=== PATIENT | male | born 1945 | race Two or more races ===

== ENCOUNTER 2017-02-28 13:58 | Emergency (ER) | payer MEDICARE, MEDICAID ==
[~2017-02-28] VITALS: Ht 170.2 cm; Wt 72.7 kg
[~2017-02-28 13:58] MED LIST: ASPI-1264 PO; BISM262T15 PO; CIPR-259 PO
[2017-02-28] MEDS ORDERED: normal saline 1000ML IV soln IVB ONE (14:40)
[2017-02-28] MEDS ORDERED: HYDROmorphone inj. 0.5 MG/0.5 ML DISP.SYRIN IV ONE (14:40)
[2017-02-28 14:52] LABS: CLARITY,URINE Clear (Clear); COLOR,URINE Dark Yellow (Yellow); GLUCOSE, URINE Negative (Neg); KETONES,URINE Negative (Neg); LEUKOCYTE ESTERASE ,URINE Small (Neg); NITRITES, URINE Negative (Neg); OCCULT BLOOD,URINE Negative (Neg); PROTEIN,URINE Negative (Neg)
[2017-02-28 14:54] LABS: UA COLLECTION TYPE CLN CATCH MIDSTREAM
[2017-02-28 15:00] LABS: BASOPHILS % (AUTO) 0.3 % (0-1); EOSINOPHILS # (AUTO) 0.3 X10'3 (0-0.9); EOSINOPHILS % (AUTO) 3.7 % (0-6); HEMATOCRIT 39.6 % (42.0-52.0); HEMOGLOBIN 13.4 g/dl (14.0-17.9); LYMPHOCYTES % (AUTO) 23.3 % (21-51); MEAN CORPUSCULAR HEMOGLOBIN 30.2 PG (27.0-31.0); MEAN CORPUSCULAR HGB CONC 33.7 % (33.0-36.5); MEAN CORPUSCULAR VOLUME 89.5 FL (78-98); MEAN PLATELET VOLUME 9.3 FL (7.4-10.4); MONOCYTES # (AUTO) 0.6 X10'3 (0-0.9); MONOCYTES % (AUTO) 6.9 % (2-12); NEUTROPHILS # (AUTO) 5.6 X10'3 (1.8-7.7); NEUTROPHILS % (AUTO) 65.8 % (42-75); PLATELET COUNT 261 X10'3 (140-440); RED BLOOD COUNT 4.43 X10'6 (4.70-6.10); RED CELL DISTRIBUTION WIDTH 13.9 % (11.5-14.5); WHITE BLOOD COUNT 8.6 X10'3 (4.5-11.0)
[2017-02-28 15:05] LABS: BACTERIA,URINE FEW /HPF (Neg); MUCUS STRANDS MANY /LPF (Neg); RBC,URINE NONE SEEN /HPF (0-2); SQUAMOUS EPITHELIAL CELL,UR FEW /LPF (FEW); WBC,URINE 0-4 /HPF (0-4)
[2017-02-28 15:08] LABS: PROTHROMBIN TIME 10.4 SECONDS (9.0-12.0)
[2017-02-28 15:13] LABS: ALANINE AMINOTRANSFERASE 54 U/L (12-78); ALBUMIN 3.7 G/DL (3.4-5.0); ALBUMIN/GLOBULIN RATIO 0.9 (1.1-1.5); ALKALINE PHOSPHATASE 91 IU/L (46-116); ANION GAP 7 (8-16); ASPARTATE AMINO TRANSFERASE 31 U/L (10-37); BILIRUBIN,TOTAL 0.3 MG/DL (0.1-1.0); BLOOD UREA NITROGEN 23 MG/DL (7-18); CALCIUM 8.8 MG/DL (8.5-10.1); CHLORIDE 107 MMOL/L (99-107); GLUCOSE 99 MG/DL (70-104); POTASSIUM 3.7 MMOL/L (3.5-5.1); SODIUM 141 MMOL/L (135-145); TOTAL CARBON DIOXIDE 26.7 MMOL/L (24-32); TOTAL PROTEIN 7.7 G/DL (6.4-8.2); eGFR 74 ML/MIN
[2017-02-28] MEDS ORDERED: METR250T PO (15:20)
[2017-02-28] MEDS ORDERED: CIPR-230 PO (15:20)
[2017-02-28] MEDS ORDERED: methylPREDNISolone sod succ 125mg/2ml vial IV ONE (15:20)
[2017-02-28] MEDS ORDERED: HYDR-569 PO (15:20)
[2017-02-28] MEDS ORDERED: ONDA4TAB9 PO (15:20)
[2017-02-28 15:49] VITALS: BP 134/72
== END 2017-02-28 15:52 | disposition home or self-care (01) ==
LOC: ER 14:00
DX: K57.92 Diverticulitis of intestine, part unspecified, without perforation or abscess without bleeding (principal); Z88.1 Allergy status to other antibiotic agents; Z88.6 Allergy status to analgesic agent; Z88.8 Allergy status to other drugs, medicaments and biological substances; Z79.899 Other long term (current) drug therapy
CPT/HCPCS: 36415; 80053; 81001; 85025; 85610; 87088; 96374; 99284; J1170; J7030; 96361

== ENCOUNTER 2017-08-25 10:51 | Emergency (ER) | payer MEDICARE, MEDICAID ==
[~2017-08-25] VITALS: Ht 170.2 cm; Wt 68.3 kg
[~2017-08-25 10:51] MED LIST changes: +HYDR-569 PO
[2017-08-25 11:37] LABS: CLARITY,URINE CLEAR (Clear); COLOR,URINE YELLOW (Yellow); GLUCOSE, URINE NEGATIVE (Neg); KETONES,URINE NEGATIVE (Neg); LEUKOCYTE ESTERASE ,URINE NEGATIVE (Neg); NITRITES, URINE NEGATIVE (Neg); OCCULT BLOOD,URINE TRACE-INTACT (Neg); PROTEIN,URINE NEGATIVE (Neg); UROBILINOGEN,URINE 0.2 E.U/dL (0.2-1.0)
[2017-08-25 11:40] LABS: BASOPHILS % (AUTO) 0.2 % (0-1); EOSINOPHILS # (AUTO) 0.2 X10'3 (0-0.9); EOSINOPHILS % (AUTO) 1.4 % (0-6); HEMOGLOBIN 13.5 g/dl (14.0-17.9); LYMPHOCYTES # (AUTO) 2.4 X10'3 (1.1-4.8); LYMPHOCYTES % (AUTO) 20.6 % (21-51); MEAN CORPUSCULAR HEMOGLOBIN 30.1 PG (27.0-31.0); MEAN CORPUSCULAR HGB CONC 33.7 % (33.0-36.5); MEAN CORPUSCULAR VOLUME 89.3 FL (78-98); MEAN PLATELET VOLUME 9.4 FL (7.4-10.4); MONOCYTES # (AUTO) 0.8 X10'3 (0-0.9); MONOCYTES % (AUTO) 6.5 % (2-12); NEUTROPHILS # (AUTO) 8.4 X10'3 (1.8-7.7); NEUTROPHILS % (AUTO) 71.3 % (42-75); PLATELET COUNT 259 X10'3 (140-440); RED BLOOD COUNT 4.48 X10'6 (4.70-6.10); RED CELL DISTRIBUTION WIDTH 14.2 % (11.5-14.5); WHITE BLOOD COUNT 11.8 X10'3 (4.5-11.0)
[2017-08-25 11:45] LABS: UA COLLECTION TYPE CLN CATCH MIDSTREAM
[2017-08-25 11:46] LABS: BACTERIA,URINE NONE SEEN /HPF (Neg); MUCUS STRANDS NONE SEEN /LPF (Neg); RBC,URINE 0-2 /HPF (0-2); SQUAMOUS EPITHELIAL CELL,UR NONE SEEN /LPF (FEW); WBC,URINE NONE SEEN /HPF (0-4)
[2017-08-25 11:47] LABS: PROTHROMBIN TIME 10.4 SECONDS (9.0-12.0)
[2017-08-25 11:58] LABS: ALANINE AMINOTRANSFERASE 23 U/L (12-78); ALBUMIN 3.7 G/DL (3.4-5.0); ALBUMIN/GLOBULIN RATIO 0.9 (1.1-1.5); ALKALINE PHOSPHATASE 91 IU/L (46-116); ANION GAP 10 (8-16); ASPARTATE AMINO TRANSFERASE 14 U/L (10-37); BILIRUBIN,TOTAL 0.4 MG/DL (0.1-1.0); BLOOD UREA NITROGEN 33 MG/DL (7-18); BUN/CREATININE RATIO 30.6 (5.4-32.0); CALCIUM 8.8 MG/DL (8.5-10.1); CHLORIDE 107 MMOL/L (99-107); CREATININE 1.08 MG/DL (0.60-1.10); GLUCOSE 133 MG/DL (70-104); LIPASE 116 U/L (73-393); POTASSIUM 3.6 MMOL/L (3.5-5.1); SODIUM 142 MMOL/L (135-145); TOTAL CARBON DIOXIDE 24.6 MMOL/L (24-32); TOTAL PROTEIN 7.8 G/DL (6.4-8.2); eGFR 68 ML/MIN
[2017-08-25] MEDS ORDERED: ciprofloxacin 250mg tablet PO ONE (14:10)
[2017-08-25] MEDS ORDERED: metroNIDAZOLE 500mg tablet PO ONE (14:10)
[2017-08-25] MEDS ORDERED: CIPR-230 PO (14:18)
[2017-08-25] MEDS ORDERED: METR500T4 PO (14:18)
[2017-08-25] MEDS ORDERED: HYDROcodone/acetaminophen 10/325mg tab PO ONE (14:20)
[2017-08-25] MEDS ORDERED: HYDR-565 PO (14:21)
[2017-08-25 14:37] VITALS: BP 106/69
== END 2017-08-25 14:39 | disposition home or self-care (01) ==
LOC: ER 10:53
DX: K57.92 Diverticulitis of intestine, part unspecified, without perforation or abscess without bleeding (principal); Z79.82 Long term (current) use of aspirin; Z79.899 Other long term (current) drug therapy
CPT/HCPCS: 36415; 74176; 80053; 81001; 83690; 85025; 85610; 99285; J3490

== ENCOUNTER 2018-05-11 09:29 | Outpatient (CLI) | payer MEDICARE, MEDICAID ==
[~2018-05-11] VITALS: Ht 170.2 cm; Wt 70.3 kg
[~2018-05-11 09:29] MED LIST changes: +HYDR-4383 PO; -HYDR-569 PO
[2018-05-11] MEDS ORDERED: EYE (10:42)
[2018-05-11 11:22] LABS: CLARITY,URINE CLEAR (Clear); COLOR,URINE YELLOW (Yellow); GLUCOSE, URINE NEGATIVE (Neg); KETONES,URINE NEGATIVE (Neg); LEUKOCYTE ESTERASE ,URINE NEGATIVE (Neg); NITRITES, URINE NEGATIVE (Neg); OCCULT BLOOD,URINE NEGATIVE (Neg); PROTEIN,URINE NEGATIVE (Neg); UA COLLECTION TYPE CLN CATCH MIDSTREAM; UROBILINOGEN,URINE 0.2 E.U/dL (0.2-1.0)
[2018-05-11 11:24] LABS: BASOPHILS # (AUTO) 0.1 X10'3 (0-0.2); EOSINOPHILS # (AUTO) 0.2 X10'3 (0-0.9); EOSINOPHILS % (AUTO) 3.2 % (0-6); LYMPHOCYTES # (AUTO) 2.3 X10'3 (1.1-4.8); LYMPHOCYTES % (AUTO) 39.1 % (21-51); MEAN CORPUSCULAR HEMOGLOBIN 29.7 PG (27.0-31.0); MEAN CORPUSCULAR HGB CONC 32.9 g/dL (33.0-36.5); MEAN CORPUSCULAR VOLUME 90.2 FL (78-98); MEAN PLATELET VOLUME 9.3 FL (7.4-10.4); MONOCYTES # (AUTO) 0.4 X10'3 (0-0.9); MONOCYTES % (AUTO) 7.6 % (2-12); NEUTROPHILS # (AUTO) 2.9 X10'3 (1.8-7.7); NEUTROPHILS % (AUTO) 49.1 % (42-75); PRE OP HEMATOCRIT 43.4 % (42.0-52.0); PRE OP HEMOGLOBIN 14.3 g/dL (14.0-17.9); PRE OP PLATELET COUNT 274 X10'3 (140-440); RED BLOOD COUNT 4.82 X10'6 (4.70-6.10); RED CELL DISTRIBUTION WIDTH 13.8 % (11.5-14.5)
[2018-05-11 11:34] LABS: ALBUMIN 3.9 G/DL (3.4-5.0); ALBUMIN/GLOBULIN RATIO 0.9 (1.1-1.5); ALKALINE PHOSPHATASE 93 IU/L (46-116); BLOOD UREA NITROGEN 27 MG/DL (7-18); BUN/CREATININE RATIO 32.1 (5.4-32.0); CALCIUM 9.6 MG/DL (8.5-10.1); CHLORIDE 106 MMOL/L (99-107); CREATININE 0.84 MG/DL (0.60-1.10); PRE OP ALT 24 U/L (30-65); PRE OP ANION GAP 7 (8-16); PRE OP AST 19 U/L (10-37); PRE OP BILIRUB, TOTAL 0.5 MG/DL (0.0-1.0); PRE OP GLUCOSE 84 MG/DL (70-104); PRE OP POTASSIUM 4.2 MMOL/L (3.4-5.1); PRE OP SODIUM 143 MMOL/L (135-145); TOTAL CARBON DIOXIDE 29.9 MMOL/L (24-32); TOTAL PROTEIN 8.1 G/DL (6.4-8.2); eGFR 90 ML/MIN
[2018-05-15] MEDS ORDERED: ringers solution, lacted 1,000 ML IV SCH (05:00)
[2018-05-15] MEDS ORDERED: cefotetan 2gm/isosm dext IVPB 50 ML IV ONE (05:30)
[2018-05-15] MEDS ORDERED: famotidine 20mg tablet PO ONE (05:30)
== END 2018-05-11 23:59 | disposition home or self-care (01) ==
LOC: PRE-OP 09:29 → EDSTATUS 05-15 11:45
PROVIDERS: ATTEND Surgery
DX: K57.90 Diverticulosis of intestine, part unspecified, without perforation or abscess without bleeding (principal); Z01.810 Encounter for preprocedural cardiovascular examination; Z01.812 Encounter for preprocedural laboratory examination
CPT/HCPCS: 36415; 80053; 81003; 85025; 86885; 86900; 86901; 86920; 87070; 93005

== ENCOUNTER 2019-02-28 09:51 | Emergency (ER) | payer MEDICARE, MEDICAID ==
[~2019-02-28] VITALS: Ht 170.2 cm; Wt 65.0 kg
[~2019-02-28 09:51] MED LIST changes: -ASPI-1264 PO; -BISM262T15 PO; -CIPR-259 PO; +EYE; -HYDR-4383 PO
[2019-02-28] MEDS ORDERED: acetaminophen 325mg tablet PO ONE (11:55)
--- NOTE | 2019-02-28 13:25 | NUR ---
PTS CT REVIEWED BY DR LING AND REMOVED PTS C-COLLAR. PT TO HAVE MRI, MRI SCREEN REVIEWED WITH PT AND FAXED TO MRI.
[2019-02-28] MEDS ORDERED: ketorolac trometh. 30mg/ml inj. IM ONE (15:45)
[2019-02-28] MEDS ORDERED: CELE-193 PO (15:47)
[2019-02-28] MEDS ORDERED: CYCL-1 PO (15:47)
[2019-02-28 16:08] VITALS: BP 150/94
== END 2019-02-28 16:06 | disposition home or self-care (01) ==
LOC: ER 09:52
DX: S16.1XXA Strain of muscle, fascia and tendon at neck level, initial encounter (principal); R51 Headache; Z79.899 Other long term (current) drug therapy; Z87.19 Personal history of other diseases of the digestive system; V89.2XXA Person injured in unspecified motor-vehicle accident, traffic, initial encounter; Y93.89 Activity, other specified; Y92.89 Other specified places as the place of occurrence of the external cause; Y99.8 Other external cause status
CPT/HCPCS: 70450; 70551; 72125; 96372; 99284; J1885

== ENCOUNTER 2019-10-12 08:05 | Emergency (ER) | payer MEDICARE, MEDICAID ==
[~2019-10-12] VITALS: Ht 170.2 cm; Wt 68.2 kg
[~2019-10-12 08:05] MED LIST changes: +CYCL-1 PO
[2019-10-12 08:39] LABS: BASOPHILS # (AUTO) 0.1 X10'3 (0-0.2); BASOPHILS % (AUTO) 0.6 % (0-1); EOSINOPHILS # (AUTO) 0.2 X10'3 (0-0.9); EOSINOPHILS % (AUTO) 1.5 % (0-6); HEMATOCRIT 40.3 % (42.0-52.0); HEMOGLOBIN 13.6 g/dl (14.0-17.9); LYMPHOCYTES # (AUTO) 2.2 X10'3 (1.1-4.8); LYMPHOCYTES % (AUTO) 20.3 % (21-51); MEAN CORPUSCULAR HEMOGLOBIN 30.8 PG (27.0-31.0); MEAN CORPUSCULAR HGB CONC 33.8 g/dL (33.0-36.5); MEAN CORPUSCULAR VOLUME 91.2 FL (78-98); MEAN PLATELET VOLUME 8.8 FL (7.4-10.4); MONOCYTES # (AUTO) 0.5 X10'3 (0-0.9); MONOCYTES % (AUTO) 4.6 % (2-12); NEUTROPHILS # (AUTO) 7.7 X10'3 (1.8-7.7); PLATELET COUNT 293 X10'3 (140-440); RED BLOOD COUNT 4.41 X10'6 (4.70-6.10); WHITE BLOOD COUNT 10.6 X10'3 (4.5-11.0)
[2019-10-12 08:40] LABS: CLARITY,URINE SLIGHTLY CLOUDY (Clear); COLOR,URINE YELLOW (Yellow); GLUCOSE, URINE NEGATIVE (Neg); KETONES,URINE TRACE mg/dl (Neg); LEUKOCYTE ESTERASE ,URINE TRACE (Neg); NITRITES, URINE NEGATIVE (Neg); OCCULT BLOOD,URINE TRACE-LYSED (Neg); PH,URINE 5.5 (4.8-8.0); PROTEIN,URINE TRACE mg/dl (Neg); UA COLLECTION TYPE VOIDED
[2019-10-12 08:46] LABS: BACTERIA,URINE NONE SEEN /HPF (Neg); MUCUS STRANDS MODERATE /LPF (Neg); RBC,URINE 0-2 /HPF (0-2); SQUAMOUS EPITHELIAL CELL,UR NONE SEEN /LPF (FEW); WBC,URINE 0-4 /HPF (0-4)
[2019-10-12 08:54] LABS: ALANINE AMINOTRANSFERASE 26 U/L (12-78); ALBUMIN 3.6 G/DL (3.4-5.0); ALBUMIN/GLOBULIN RATIO 0.9 (1.1-1.5); ALKALINE PHOSPHATASE 102 IU/L (46-116); ANION GAP 10 (8-16); ASPARTATE AMINO TRANSFERASE 25 U/L (10-37); BILIRUBIN,TOTAL 0.5 MG/DL (0.1-1.0); BLOOD UREA NITROGEN 20 MG/DL (7-18); BUN/CREATININE RATIO 18.3 (5.4-32.0); CALCIUM 8.6 MG/DL (8.5-10.1); CHLORIDE 106 MMOL/L (99-107); CREATININE 1.09 MG/DL (0.60-1.10); GLUCOSE 135 MG/DL (70-104); LIPASE 82 U/L (73-393); POTASSIUM 3.3 MMOL/L (3.5-5.1); SODIUM 141 MMOL/L (135-145); TOTAL PROTEIN 7.8 G/DL (6.4-8.2); eGFR 67 ML/MIN
[2019-10-12] MEDS ORDERED: ondansetron/PF 4mg/2ml inj IV ONE (09:35)
[2019-10-12] MEDS ORDERED: normal saline 1000ML IV soln IVB ONE ×2 (09:35→12:45)
[2019-10-12] MEDS ORDERED: bisacodyl 10mg suppository rectal RC ONE (09:35)
[2019-10-12] MEDS: diatr meglu/diatrizoate 30ml oral sol.-(3 dose) bottle PO SCH ×3 (10:01→12:04)
--- NOTE | 2019-10-12 11:59 | NUR ---
sm bm smear in bed side comode. pt in bathroom at this time will give last dose of contrast when finished.
[2019-10-12] MEDS ORDERED: iohexol 300mg/ml 100ml inj. ONE (12:11)
--- NOTE | 2019-10-12 12:30 | NUR ---
Pt requesting pain medication. MD notified
[2019-10-12] MEDS ORDERED: bisacodyl 10mg suppository rectal RC STA (12:40)
[2019-10-12] MEDS ORDERED: morphine 2 MG/ML inj. syringe IV PRN (12:45)
[2019-10-12] MEDS ORDERED: METR-159 PO (14:29)
[2019-10-12] MEDS ORDERED: LEVO500T2 PO (14:29)
[2019-10-12] MEDS ORDERED: POLY17PO10 PO (14:29)
[2019-10-12] MEDS ORDERED: levoFLOXACIN 750MG TABLET PO ONE (14:30)
[2019-10-12] MEDS ORDERED: metroNIDAZOLE 500mg tablet PO ONE (14:30)
[2019-10-12 15:03] VITALS: BP 125/68
== END 2019-10-12 15:05 | disposition home or self-care (01) ==
LOC: ER 08:06
DX: K57.92 Diverticulitis of intestine, part unspecified, without perforation or abscess without bleeding (principal); K59.00 Constipation, unspecified; Z72.89 Other problems related to lifestyle; Z79.899 Other long term (current) drug therapy
CPT/HCPCS: 36415; 74177; 76700; 80053; 81001; 83690; 85025; 87088; 96361; 96374; 96375; 99285; J2270; J2405; J7030; Q9963; Q9967; J3490

== ENCOUNTER 2024-12-13 08:20 | Outpatient (CLI) | payer MEDICARE, MEDICAID ==
--- NOTE | 2024-12-13 09:50 | RADIOLOGY REPORT ---
CLINICAL HISTORY: UNSPECIFIED VISUAL LOSS TECHNIQUE: Routine multiplanar imaging of the brain was performed without gadolinium contrast. COMPARISON: None FINDINGS: There is no abnormal restricted diffusion to suggest acute infarction. There is mild brain volume loss. Few punctate foci of T2 hyperintensity within the white matter both cerebral hemispheres is of doubtful clinical significance. There is no evidence for acute ischemic changes, mass, mass effect, or extra- axial fluid collection. There is no hydrocephalus or midline shift. The cerebral sulci and subarachnoid cisterns are not effaced. The imaged paranasal sinuses are clear. There has been left cataract extraction. High-resolution images through the posterior fossa demonstrate no definite evidence for mass lesion within the internal auditory canals. The semicircular canals and cochlear are grossly unremarkable. The midline structures, including the corpus callosum, are unremarkable. The intracranial flow voids are maintained. IMPRESSION: No acute intracranial abnormality seen. No evidence for acute infarct. Mild brain volume loss. No significant chronic small vessel ischemic change. Left cataract extraction
== END 2024-12-13 23:59 | disposition home or self-care (01) ==
LOC: MRI02 08:20
PROVIDERS: ATTEND Physician Assistant
DX: H26.9 Unspecified cataract (principal); H54.7 Unspecified visual loss
CPT/HCPCS: 70551